=== PATIENT | male | born 1975 | race African-American/Black ===

== ENCOUNTER 2019-05-27 21:04 | Emergency (ER) | payer MEDICAID ==
[~2019-05-27] VITALS: Ht 180.3 cm; Wt 78.0 kg
[2019-05-27 23:13] VITALS: BP 117/71
== END 2019-05-28 00:58 | disposition left against medical advice (07) ==
LOC: ER 21:04
DX: Z53.21 Procedure and treatment not carried out due to patient leaving prior to being seen by health care provider (principal)